=== PATIENT | male | born 1935 | race Caucasian/White ===

== ENCOUNTER 2024-05-18 06:39 | Day surgery (SDC) | payer MEDICARE, OTHER, SELFPAY ==
[2024-05-12 14:02] VITALS: BMI 29.7
[2024-05-18] VITALS (10 sets, daily range): BP systolic 111–161; BP diastolic 51–134; BMI 27.5
[2024-05-18] MEDS: LOW STRENGTH ASPIRIN 81 MG PO (07:13)
--- NOTE | 2024-05-18 09:40 | ITS.CL.CATH ---
[facility] - Catheterization
Cardiac Catheterization
Procedure Report:
CARDIAC CATHETERIZATION REPORT
Date of Procedure: 05/18/2024
Referring: Ernst Mullen D.O.
INDICATION: Left shoulder pain, abnormal stress test.
PROCEDURE:
1. Left heart catheterization
2. Coronary angiography.
3. Successful IFR of the proximal LAD.
A total of 34 minutes of procedural/moderate sedation was utilized. An independent rn medical surgical was present to assist with and help manage the patient's level of consciousness and physiologic status.
ACCESS:
1. 6 [place] right radial artery using a modified Seldinger technique.
CATHETERS:
1. 5 Austrian JR4.
2. 5 Austrian JL 3.5.
3. 6 [place] JL 3.5 guiding catheter.
HEMODYNAMIC DATA
Weight (kg): 78.5
AO (s/d/x, mmHg): 140/70/100
LV (s/x mmHg): 140/9
LEFT VENTRICULOGRAPHY: Not performed.
CORONARY ANGIOGRAPHY
Dominance: Right.
Left Main: Normal size, trifurcating vessel. There is no coronary artery disease.
LAD: Normal size vessel giving rise to 1 significant diagonal. There is a 40% lesion in the proximal LAD spanning the origin of D1.
Ramus: Small size vessel supplying the basal anterolateral wall. There is no coronary artery disease.
Circumflex: Normal size, nondominant vessel giving rise to 1 significant obtuse marginal which supplies the majority of the inferolateral wall. There is a 30% lesion in the origin of the obtuse marginal.
RCA: Normal size, dominant vessel. There is a 10-20% lesion in the mid RCA.
INTERVENTION(S)
1. Successful IFR of the 40% proximal LAD lesion, demonstrating nonocclusive/borderline disease (IFR = 0.91).
Narrative:
The decision was made to perform physiologic testing. The diagnostic catheter was removed over a wire and exchanged for a(n) 6 [place] JL 3.5 guiding catheter. The guiding catheter was advanced into the ascending aorta and seated in the left main
coronary artery. Additional heparin was given to obtain an ACT greater than 250 seconds. An iFR wire was zeroed outside of the body, then inserted into the guiding sheath. The wire was advanced and the transducer was normalized just outside of the
guiding catheter tip. The wire was advanced into the mid LAD, beyond the 40% lesion. Three iFR measurements were taken. The lesion was determined to be nonocclusive/borderline (0.91). The decision was made to defer intervention at this time.
Closure Device: Vascular band.
Radiation (mGy): 384.39
DAP (cm2.Gy): 32.6721
Fluoroscopy time (minutes): 5.0
CONCLUSIONS
1. Right dominant circulation with a 10-20% lesion in the mid RCA, a 30% lesion in the origin of OM1 and a nonocclusive/borderline occlusive 40% proximal LAD lesion (IFR = 0.91).
2. Normal filling pressures (LVEDP = 9 mmHg at 78.5 kg).
RECOMMENDATIONS:
1. Expectant management after cardiac catheterization via right radial approach.
2. Limited weight bearing on the right wrist for one week.
3. Consider initiation of primary prevention, though temper given advanced age.
4. Would prefer OMT/GDMT rather than intervention unless hemodynamics, electrophysiologic status prohibits it.
5. Stable for outpatient follow-up.
Copy to: Ernst Mullen D.O.
Antoni Blas, , FACC, FACP
[2024-05-18 14:36] LABS: ACT-LR - POC > 397 Seconds (116-155)
== END 2024-05-18 12:53 | disposition home or self-care (01) ==
LOC: CATH 06:39
PROVIDERS: ATTENDING PHYSICIAN Internal Medicine Cardiovascular Disease; FAMILY PHYSICIAN Family Medicine; OTHER PHYSICIAN Internal Medicine Cardiovascular Disease
DX: I25.10 Atherosclerotic heart disease of native coronary artery without angina pectoris (principal); R94.39 Abnormal result of other cardiovascular function study; M25.512 Pain in left shoulder; R42 Dizziness and giddiness; R26.89 Other abnormalities of gait and mobility; Z91.81 History of falling; I08.1 Rheumatic disorders of both mitral and tricuspid valves; M19.90 Unspecified osteoarthritis, unspecified site; E66.9 Obesity, unspecified; Z79.82 Long term (current) use of aspirin; Z82.49 Family history of ischemic heart disease and other diseases of the circulatory system; Z79.899 Other long term (current) drug therapy
CPT/HCPCS: 93799; 99152; 99153; 93458; C1769; C1894; Q9967